=== PATIENT | male | born 1955 | race Caucasian/White ===

== ENCOUNTER → 2019-06-26 18:44 | Outpatient (ROUT) | payer BC, SELFPAY ==
[2019-06-26 18:53] LABS: Add Manual Diff / Slide Review NO; Basophils Absolute Auto 0 /uL (0-100); Basophils Percent Auto 0.8 % (0-2); Eosinophils Absolute Auto 100 /uL (0-450); Hematocrit 42.8 % (41-53); Hemoglobin 14.5 g/dL (13.5-17.5); Lymphocytes Absolute Auto 1900 /uL (1100-4500); Lymphocytes Percent Auto 34.2 % (25-40); Mean Corpuscular HGB Conc 33.8 % (30-36); Mean Corpuscular Hemoglobin 30.7 PG (26-34); Mean Corpuscular Volume 90.7 fL (80-100); Monocytes Absolute Auto 400 /uL (0-900); Neutrophils Absolute Auto 3000 /uL (1500-7000); Platelet Count 239 X10^3/uL (150-400); Red Blood Cell Count 4.72 X10^6/uL (4.5-5.9); Red Cell Distribution Width 13.3 % (11.6-14.8); White Blood Cell Count 5.5 X10^3/uL (4.5-11.0)
[2019-06-26 19:01] LABS: Alanine Aminotransferase 86 IU/L (21-72); Aspartate Aminotransferase 49 IU/L (17-59); Bilirubin Total 0.5 mg/dL (0.2-1.3); Blood Urea Nitrogen 20 mg/dL (9-20); Calcium 9.6 mg/dL (8.4-10.2); Carbon Dioxide 28 mmol/L (22-32); Chloride 101 mmol/L (98-107); Estimated Glomerular Filt Rate > 60.0 mL/min (>60); Glucose 84 mg/dL (80-110); HEMOLYSIS < 15 (0-50); Potassium 4.1 mmol/L (3.4-5.1); Sodium 139 mmol/L (137-145)
[2019-06-26 19:29] LABS: TSH w/ Reflex to FT4 2.74 uIU/mL (0.47-4.68)
[2019-06-26 19:49] LABS: Vitamin B12 522 pg/mL (239-931)
== END ==
PROVIDERS: Visit Provider Internal Medicine
DX: R07.89 Other chest pain (principal); R10.11 Right upper quadrant pain; R20.0 Anesthesia of skin
CPT/HCPCS: 80048; 82247; 82607; 84443; 84450; 84460; 85025

== ENCOUNTER → 2019-07-03 06:33 | Outpatient (CLI) | payer OTHER, SELFPAY ==
--- NOTE | 2019-07-03 07:11 | DI.CT.S_ITS ---
PROCEDURE: CT CHEST WO CON INDICATIONS: CHEST PAIN TECHNIQUE: Noncontrast 5 mm thick sections acquired from the pulmonary apices to the posterior costophrenic angles. 1 mm lung window, 5 mm thick coronal and sagittal and 7 mm axial MIP reformats were then acquired. For radiation dose reduction, the following was used: automated exposure control, adjustment of mA and/or kV according to patient size. COMPARISON: None. FINDINGS: Image quality: Excellent. Lungs and pleura: No focal nodules, masses, or consolidations. There are coarse scattered mainly calcified plaques along the lateral periphery and to a lesser extent medially and inferior periphery of the right pleural surface. No pleural effusion. Mild diffuse, bilateral peribronchial thickening without bronchial narrowing. Central airways are patent without endobronchial lesion.. Mediastinum: Coarse, dystrophic calcification is present involving anterior, posterior, and right infralateral surfaces of the pericardium. Coarse calcification in the right bronchovascular hilar region which may be calcified lymph node. Heart size is normal. No pericardial effusion. No mediastinal adenopathy by size criteria. Thoracic aorta and central pulmonary arteries are normal in size. Esophagus is normal in caliber. No hiatal hernia. Bones and chest wall: No suspicious bony lesions. No vertebral body compression fractures. Mild anterior wedge deformities with superior and inferior bridging osteophytes indicating chronic degenerative change. There is a deformity of the right clavicle, likely remote, healed fracture. No axillary or supraclavicular adenopathy by size criteria. Thyroid gland is normal. Abdomen: Visualized upper abdominal solid organs and bowel loops appear normal in the absence of contrast. IMPRESSION: 1. Pericardial calcification, nonspecific, but likely sequelae of remote infection, remote trauma, or other metabolic disease. Consider restrictive cardiomyopathy 2. Coarse, calcified right pleural plaques suggesting prior exposure to asbestos. This may also be remote posttraumatic or postinfectious. No effusion or parenchymal disease. Dictated by: Sarah Bangura M.D. on 07/03/2019 at 9:53 Approved by: Sarah Bangura M.D. on 07/03/2019 at 10:10
== END ==
PROVIDERS: Visit Provider Internal Medicine
DX: R07.89 Other chest pain (principal); J92.9 Pleural plaque without asbestos; I31.1 Chronic constrictive pericarditis
CPT/HCPCS: 71250

== ENCOUNTER → 2019-07-16 15:37 | Outpatient (CLI) | payer OTHER, SELFPAY ==
--- NOTE | 2019-07-16 | DI.ECHO.S_ITS ---
[facility]---------+ [facility] +---------+ : : [address] : [place] [address] : : : : [id number] : : : : Phone: [phone]+ Echocardiogram Report + + :Name: MCIHAEL VALENTIN Study Date: 07/16/2019 Height: 73 in : :[facility] Weight: 195 lb : : Gender: Male BSA: 2.1 m2 : :: 1955 Age: 64 yrs BP: 124/78 mmHg: :Reason For Study: Cardiomyopathy : : Performed By: KW : :Referring: MERLINE DENSON : + + Interpretation Summary The left ventricle is normal in size. The ejection fraction is estimated to be 60-65%. The right ventricle is normal in size and function. No significant valvular pathology seen. The IVC is dilated (diameter is greater than 2.1 cm) yet it collapses greater than 50% with a sniff. This suggests a right atrial pressure of 8 mm Hg. Procedure: A two-dimensional transthoracic echocardiogram with color flow and Doppler was performed. The study quality was technically adequate. There is no prior echocardiogram noted for this patient. The patient was in normal sinus rhythm during the exam. Left Ventricle: The left ventricle is normal in size. Proximal septal thickening is noted. There is no thrombus. The ejection fraction is estimated to be 60-65%. Left ventricular wall motion is normal. MV E/A: 1.3 Med Peak E' Jaydon: 6.5 cm/sec E/E' med: 13.2. Right Ventricle: The right ventricle is normal in size and function. Atria: The left atrial size is normal. Right atrial size is normal. The interatrial septum is intact with no evidence for an atrial septal defect. Mitral Valve: The mitral valve is normal in structure and function. There is trace mitral regurgitation. Aortic Valve: The aortic valve is trileaflet. The aortic valve opens well. There is no aortic valve stenosis. No aortic regurgitation is present. Tricuspid Valve: The tricuspid valve is normal in structure and function. There is trace tricuspid regurgitation. Pulmonary artery pressures cannot be estimated because of the lack of a measurable TR jet velocity. Pulmonic Valve: The pulmonic valve is not well visualized. There is trace pulmonic regurgitation. Great Vessels: The aortic root is normal size. The ascending aorta could not be visualized. The pulmonary artery is normal size. The IVC is dilated (diameter is greater than 2.1 cm) yet it collapses greater than 50% with a sniff. This suggests a right atrial pressure of 8 mm Hg. Pericardium/ Pleura There is no pericardial effusion. There is no pleural effusion. MMode/2D Measurements & Calculations LVIDd: 3.6 cm LVOT diam: 2.2 cm LVIDs: 2.5 cm Ao root diam: 2.9 cm FS: 32.4 % EPSS: 0.23 cm IVSd: 1.2 cm LVPWd: 1.1 cm LV jasmine. diameter/BSA (cm/m^2): 1.7 LV sys. diameter/BSA (cm/m^2): 1.2 LA A2 area: 19.6 cm2 RA long axis: 5.4 cm LA A4 area: 18.4 cm2 RA area: 16.1 cm2 LA length (vol): 5.0 cm RA vol: 41.3 ml LA vol: 60.6 ml RA : 19.4 ml/m2 LA vol index: 28.5 ml/m2 TAPSE: 1.9 cm Doppler Measurements & Calculations Ao V2 max: 117.0 cm/sec LVOT Max Jaydon: 111.0 cm/sec Ao V2 mean: 89.2 cm/sec LV V1 max P.9 mmHg Ao max P.5 mmHg LV V1 VTI: 25.5 cm Ao mean P.5 mmHg BASIM(I,D): 3.6 cm2 Ao V2 VTI: 26.2 cm BASIM(V,D): 3.5 cm2 sev ratio: 0.97 BASIM indexed to BSA (cm^2/m^2): 1.7 MV E max jaydon: 85.7 cm/sec PA V2 max: 72.3 cm/sec MV A max jaydon: 67.2 cm/sec PA V2 mean: 52.3 cm/sec MV E/A: 1.3 PA mean P.3 mmHg Med Peak E' Jaydon: 6.5 cm/sec PA Accel Time: 0.16 sec E/E' med: 13.2 Lat Peak E' Jaydon: 9.2 cm/sec E/E' lat: 9.3 E/e' average: 11.3 MV dec time: 0.30 sec SV(LVOT): 93.3 ml Reading Physician:06:06 PM
== END ==
PROVIDERS: Visit Provider Internal Medicine
DX: I42.5 Other restrictive cardiomyopathy (principal)
CPT/HCPCS: 93306